=== PATIENT | male | born 1990 | race Hispanic/Latino ===

== ENCOUNTER 2017-02-19 18:37 | Emergency (ER) | payer OTHER ==
[2017-02-19 18:55] VITALS: BP 129/71; PULSE 100; RESP 18; TEMP 98; O2SAT 98
[2017-02-19] MEDS ORDERED: Absorbable Gelatin Sponge Size 12-7 TP ONE ×2 (19:05→20:05)
[2017-02-19] MEDS ORDERED: Absorbable Gelatin Sponge Size 12-7 ONE ×2 (19:32→20:07)
--- NOTE | 2017-02-19 19:38 | ED PDOC ---
Upper Extremity Pain/Injury Chief Complaint (Nursing): Upper Extremity Problem/Injury Chief Complaint (Provider): Upper Extremity Problem/Injury History Per: Patient Onset/Duration Of Symptoms: Hrs (x 1) Current Symptoms Are (Timing): Still Present Additional Complaint(s): Arnodl is a 26 year old male who presents to the Emergency Department for cut on his left hand-ring with a knife. Patient states he was cutting a potato an hour ago where he cut his left hand-ring finger. Tetanus not up to date PMD: Joel Past Medical History Reviewed: Historical Data, Nursing Documentation, Vital Signs Vital Signs: Last Vital Signs Temp 98 F 02/19/17 18:52 Pulse 100 H 02/19/17 18:52 Resp 18 02/19/17 18:52 BP 129/71 02/19/17 18:52 Pulse Ox 98 02/19/17 18:52 - Medical History PMH: No Chronic Diseases - Surgical History Surgical History: No Surg Hx - Family History Family History: States: No Known Family Hx - Home Medications Home Medications: Ambulatory Orders Medication Instructions Recorded Cephalexin [Keflex] 500 mg PO QID #20 capsule 02/19/17 - Allergies Allergies/Adverse Reactions: Allergies Allergy/AdvReac Type Severity Reaction Status Date / Time No Known Allergies Allergy Verified 02/19/17 18:52 Review of Systems ROS Statement: Except As Marked, All Systems Reviewed And Found Negative Skin: Positive for: Other (cut on his left-hand ring finger) Physical Exam - Reviewed Nursing Documentation Reviewed: Yes Vital Signs Reviewed: Yes - Physical Exam Appears: Positive for: Well, Non-toxic Head Exam: Positive for: ATRAUMATIC, NORMAL INSPECTION, NORMOCEPHALIC Skin: Positive for: Normal Color Eye Exam: Positive for: Normal appearance Neck: Positive for: Normal Respiratory: Negative for: Respiratory Distress Extremity: Positive for: Other (Cut on distal tip of right finger-left hand, able to flex DIP and PIP, no bony environment) Neurologic/Psych: Positive for: Alert, Oriented (x 3) - ECG O2 Sat by Pulse Oximetry: 98 (RA) Pulse Ox Interpretation: Normal Medical Decision Making Medical Decision Making: Time: 18:57 Plan: - Adacel 0.5 ml IM - Gelatin Sponge 12-7 - Keflex 500 mg PO STATE Time: 19:30 - Wound cleanse, gel foam and dressing placed for hemostasis. Time: 20:05 - Gelatin Sponge 12-7 Upon provider evaluation patient is medically stable, and requires no further treatment in the ED at this time. Patient will be discharged with Rx for Keflex. Counseling was provided and all questions were answered regarding diagnosis and need for follow up with PCP. There is agreement to discharge plan. Return if symptoms persist or worsen. Scribe Attestation: Documented by Roberto Olivares, acting as a scribe for Gabbie Juarez PA-C Provider Scribe Attestation: All medical record entries made by the Scribe were at my direction and personally dictated by me. I have reviewed the chart and agree that the record accurately reflects my personal performance of the history, physical exam, medical decision making, and the department course for this patient. I have also personally directed, reviewed, and agree with the discharge instructions and disposition. Disposition - Clinical Impression Clinical Impression: Finger avulsion - Patient ED Disposition Is Patient to be Admitted: No - Disposition Disposition: Routine/Home Disposition Time: 20:22 Condition: FAIR Additional Instructions: RETURN TO ED/PMD/URGENT IN 2 DAYS FOR WOUND CHECK Prescriptions: Cephalexin [Keflex] 500 mg PO QID #20 capsule Instructions: Skin Avulsion (ED) Forms: [employer] (Romansh)
== END 2017-02-19 20:01 | disposition home or self-care (01) ==
LOC: H.ER 18:37
DX: S61.215A Laceration without foreign body of left ring finger without damage to nail, initial encounter (principal); W26.0XXA Contact with knife, initial encounter; Y92.89 Other specified places as the place of occurrence of the external cause